=== PATIENT | female | born 1960 | race Caucasian/White ===

== ENCOUNTER → 2021-10-13 11:44 | Outpatient (BNVA) | payer MEDICAID, SELFPAY | PROVIDERS: Visit Provider Specialist | DX: G43.711 Chronic migraine without aura, intractable, with status migrainosus (principal); F07.81 Postconcussional syndrome | CPT/HCPCS: 96116; 99204; 99205 ==

== ENCOUNTER → 2021-10-30 14:53 | Outpatient (BNVA) | payer MEDICAID, SELFPAY | PROVIDERS: Referring Provider Specialist; Visit Provider Specialist | DX: G43.711 Chronic migraine without aura, intractable, with status migrainosus (principal); R41.82 Altered mental status, unspecified; F07.81 Postconcussional syndrome | CPT/HCPCS: 95816 ==

== ENCOUNTER 2021-12-06 10:03 | Outpatient (CLI) | payer MEDICAID, SELFPAY ==
--- NOTE | 2021-12-06 10:15 | MR_ITS ---
WS: [id number] MRI HEAD WITHOUT CONTRAST TECHNIQUE: Sagittal T1, T2 axial, T2 axial FLAIR, axial and coronal T1 images, axial susceptibility w eighted imaging, axial diffusion weighted images, and coronal T2 images were obtained. CLINICAL INFORMATION: R29.90 - Unspecified symptoms and signs involving the ner... COMPARISON: None. FINDINGS: No evidence of restricted diffusion to suggest acute ischemia. Ventricular system and basal cisterns are patent. Mild small vessel changes. No significant parenchymal volume loss. Mild small vessel pierson ges in the marci. Normal posterior fossa. Normal vascular flow voids at the skull base. No extra-axial fluid collections. No evidence of mass or mass effect. Mild mucosal thickening in the ethmoid air cells and sphenoid sin us. Mild mucosal thickening LEFT frontal ethmoidal recess. Orbits appear normal. Temporal lobes and hippocampal formations are normal in appearance. Mild mucosal thickening RIGHT mas toid air cells. LEFT mastoid air cells are well aerated. No hemosiderin on susceptibly weighted images. MR/MR head wo con* [id number] IMPRESSION: 1. No evidence of restricted diffusion to suggest acute ischemia. 2. Mild small vessel changes with mild parenchymal volume loss. Mild small ves randell changes in the marci. 3. Mild mucosal thickening LEFT frontal ethmoid recess and RIGHT mastoid air c ells. 4. Normal optic chiasm and pituitary infundibulum. 5. Temporal lobes and hippocampal formations are normal in appearance. 6. No hemosiderin on susceptibly weighted images. 7. No other suspicious findings.
== END 2021-12-06 10:04 | disposition home or self-care (01) ==
LOC: RAD 10:05
PROVIDERS: Visit Provider Specialist
DX: R29.90 Unspecified symptoms and signs involving the nervous system (principal)
CPT/HCPCS: 70551